=== PATIENT | male | born 1950 | race Caucasian/White ===

== ENCOUNTER 2020-02-17 00:11 | Observation (INO) | payer OTHER, SELFPAY ==
[2020-02-17] VITALS (21 sets, daily range): BP systolic 85–133; BP diastolic 57–85; PULSE 93–121; RESP 16–34; TEMP 36.6–37.2; O2SAT 89–98; BMI 19.8
--- NOTE | ~2020-02-17 | XR_ITS ---
EXAMINATION: XR chest 1V portable DATE: 02/17/2020 01:13 INDICATION: Cough and shortness of breath. TECHNIQUE: A single frontal view of the chest was obtained. COMPARISON: Chest 2 views 01/03/2017, CT abdomen and pelvis 08/26/2016 FINDINGS: There are lucencies in the lungs, consistent with emphysema. There is a moderate-sized righ t pleural effusion. There are airspace opacities in right mid and lower lung zones and left lower nikolai g zone. No pneumothorax. The heart size is normal. There are changes of anterior fusion procedure in cervical spine. There is a right internal jugular port with tip in proximal right atrium. IMPRESSION: 1. Moderate-sized right pleural effusion. 2. Airspace opacities in right mid and lower lung zones and left lower lung zone, consistent with ate lectasis versus pneumonia. 3. Emphysema. Reviewed, dictated and finalized at location A. IMPRESSION: 1. Moderate-sized right pleural effusion. 2. Airspace opacities in right mid and lower lung zones and left lower lung zon e, consistent with atelectasis versus pneumonia. 3. Emphysema.
--- NOTE | 2020-02-17 00:22 | ECG_ITS ---
Measurements Intervals [place] Rate: 113 P: 48 MS: 175 QRS: -44 QRSD: 112 T: 88 QT: 339 QTc: 465 Interpretive Statements SINUS TACHYCARDIA ATRIAL PREMATURE COMPLEXES LEFT AXIS DEVIATION LOW QRS VOLTAGE IN LIMB LEADS DELAYED PRECORDIAL R/S TRANSITION BORDERLINE ST-T WAVE ABNORMALITY- INF/LAT LEADS BASELINE WANDER- I, III, AVR, AVL, AVF, V1, V3-V6 ABNORMAL ECG Electronically Signed On 02-17-2020 7:10:00 CDT by Hans Rahman D.O.
[2020-02-17 00:35] LABS: Basophils Percent Auto 0.4 % (0.2-1.2); Eosinophils Absolute Auto 0.1 K/mm3 (0-0.3); Eosinophils Percent Auto 0.9 % (0-4.4); Hematocrit 38.5 % (42.0-52.0); Hemoglobin 12.7 g/dL (14.0-18.0); Immature Granulocyte Absolute 0.04 K/mm3 (0.00-0.031); Immature Granulocyte Percent A 0.4 % (0-0.5); Lymphocytes Absolute Auto 0.58 K/mm3 (0.9-3.2); Lymphocytes Percent Auto 6.3 % (18.3-44.2); Mean Corpuscular Hemoglobin 29.7 pg (26-34); Mean Corpuscular Volume 90.2 fl (80-100); Monocytes Absolute Auto 0.6 K/mm3 (0.1-0.6); Monocytes Percent Auto 6.7 % (2.6-8.5); Neutrophils Absolute Auto 7.9 K/mm3 (1.3-6.7); Neutrophils Percent Auto 85.3 % (45.5-73.1); Platelet Count Result 295 k/mm3 (150-375); Red Blood Count 4.27 M/mm3 (4.6-6.20); Red Cell Distribution Width 14.6 % (11.5-14.5); White Blood Count 9.2 K/mm3 (4.5-10.0)
[2020-02-17 00:44] LABS: Prothrombin Time 13.1 Seconds (11.1-14.7)
[2020-02-17 00:45] LABS: Partial Thromboplastin Time 38.2 SECONDS (22.3-36.8)
[2020-02-17 00:46] LABS: Anion Gap 6 mmol/L (8-16); Blood Urea Nitrogen 19 mg/dL (9-20); Calcium 8.4 mg/dL (8.4-10.2); Carbon Dioxide 25 mmol/L (22-30); Chloride 99 mmol/L (98-107); Estimated CRCL calculation 68 ml/min; Estimated Glomerular Filt Rate > 60; Glucose 127 mg/dL (75-110); Potassium 4.5 mmol/L (3.4-5.0); Sodium 130 mmol/L (137-145)
--- NOTE | 2020-02-17 00:50 | ED.GENADULT ---
HPI - General Adult General Chief complaint: Shortness of Breath/Dyspnea Stated complaint: SOB Time Seen by Provider: 02/17/20 00:15 Source: RN notes reviewed History of Present Illness HPI narrative: Patient presents emergency department from home for shortness of breath. Patient states symptoms progressively been worsening over the past several weeks. States he has a history of COPD. Also states that he has a history of metastatic rectal cancer. Patient states he initially had rectal cancer that was treated and under remission but then returned with metastasis to the lung into the liver patient was initially on chemotherapy but secondary to reactions to chemotherapy stopped his chemotherapy in September. States he is had no treatment since that time. He states that at that time when he stopped he states that they were unsure of his life expectancy. Patient states that he is got has a cough that is nonproductive. He denies any fevers or chills chest pain abdominal pain nausea vomiting or any other symptoms Related Data Allergies Allergy/AdvReac Type Severity Reaction Status Date / Time Penicillins Allergy Severe Anaphylactic Verified 10/11/08 13:41 Shock BEES Allergy Severe Anaphylactic Uncoded 04/14/08 20:22 Shock MUSHROOMS Allergy Severe Anaphylactic Uncoded 04/14/08 20:22 Shock Review of Systems Review of Systems: Narrative: Gen.: Denies fevers or chills Eyes: Denies eye pain or visual change ENT: Denies congestion Respiratory: Reports shortness of breath CV: Denies chest pain or palpitations GI: Denies abdominal pain nausea, emesis or diarrhea denies burning, urgency, frequency or hematuria reports rectal cancer with metastasis to the liver and chest Musculoskeletal: Denies back pain or muscle pain Neuro: Denies numbness, tingling, weakness or focal weakness Skin: Denies rash Except as documented, all other systems reviewed and negative [facility] Past Medical History Medical History (Updated 02/17/20 @ 03:06 by Landon Ott DO) COPD (chronic obstructive pulmonary disease) Rectal cancer metastasized to lung Social History Social History (Updated 02/17/20 @ 01:25 by Landon Ott DO) Smoking status: Former smoker Exam Narrative: Exam Narrative: APPEARANCE: Moderate respiratory distress, nontoxic, resting in bed EYES: EOMI HEENT: Normocephalic, atraumatic, OMM RESPIRATORY: Moderate respiratory distress sitting upright in bed, coarse breath sounds with bilateral lung spence with decreased breath sounds on right CARDIOVASCULAR: Regular rate and rhythm without murmurs rubs or gallops. ABDOMINAL: Soft, nontender, nondistended, no rebound or guarding MUSCULOSKELETAl: Moves all extremities. No clubbing, cyanosis or edema. NEURO: Awake and alert. Following commands, speech normal, no focal deficits SKIN:: Warm, dry. No rashes lesions or abrasions PSYCHIATRIC: Normal affect/mood, Course Course Emergency Course: Extensive discussion with patient and family. The patient is a modified code he states he would not want intubation but is okay with CPR. We discussed if they ever discussed hospice with the patient. He states it was initially discussed but then he had had to retire from his job and had secondary insurance issues and never followed up. Patient states that he does have an inhaler he is used at home but states he is not really followed up with any physicians since he stopped his treatments in September Cus with Dr. Wynn presentation work-up. Agrees admission at this time. Will have case management evaluate the patient as well as have a therapeutic thoracentesis Discussed with patient and family results of workup and diagnosis. Discussed need for admission. Patient and family understand and agree to current treatment plan Vital Signs Vital signs: Vital Signs Temperature 98.1 F 02/17/20 00:17 Pulse Rate 116 H 02/17/20 00:17 Respiratory Rate 33 H 02/17/20 00:17 Blood Pressure 126/
[2020-02-17 00:53] LABS: Alveolar/Arterial O2 Gradient 113.5 mmHg; Base Excess ABG -1.4 mEq/l (+/-2.0); Fractional Inspired Oxygen 28 %; HCO3 ABG 19.8 mEq/l (22.0-26.0); Oxygen Content ABG 15.4 %vol (16.0-22.0); Oxygen Saturation ABG 93.4 % (95.0-100.0); Oxyhemoglobin 91.2 % THb (90.0-100.0); PCO2 ABG 24.1 mmHg (35.0-45.0); PO2 ABG 57.7 mmHg (80.0-100.0); PO2 FiO2 Ratio Arterial Blood 2.06 %
[2020-02-17 00:54] LABS: Device NASAL CANNULA; Modified Allen's Test Pass; Site Drawn LEFT RADIAL; pH ABG 7.532 (7.350-7.450)
[2020-02-17 00:56] LABS: Lactic Acid Reflex 2.3 mmol/L (0.7-2.1)
[2020-02-17 00:59] LABS: NT Pro B Type Natriuretic Pept 1310 PG/ML (5-100); Troponin I 0.014 ng/mL (0.000-0.034)
[2020-02-17] MEDS: IPRATROPIUM BR 0.02% INH SOLN 0.5 MG/2.5 ML VIAL INHALATION ×4 (01:32→19:26)
[2020-02-17] MEDS: ALBUTEROL SULFATE NEB 2.5 MG/0.5 ML INH 5 MG INHALATION ×4 (01:32→19:26)
[2020-02-17] MEDS: SODIUM CHLORIDE 0.9% IV 1,000 ML 80 ML IV CONT ×3 (02:15→05:40)
[2020-02-17] MEDS: SODIUM CHLORIDE 0.9% IV 1,000 ML 999 ML IV CONT (02:27)
[2020-02-17 03:39] LABS: Reflex Lactic Acid Yes or No Add Lactic
[2020-02-17 04:40] LABS: Lactic Acid 1.5 mmol/L (0.7-2.1)
[2020-02-17 08:02] LABS: Basophils Percent Auto 0.4 % (0.2-1.2); Eosinophils Percent Auto 0.3 % (0-4.4); Hemoglobin 11.3 g/dL (14.0-18.0); Immature Granulocyte Absolute 0.02 K/mm3 (0.00-0.031); Immature Granulocyte Percent A 0.3 % (0-0.5); Lymphocytes Absolute Auto 0.35 K/mm3 (0.9-3.2); Lymphocytes Percent Auto 4.7 % (18.3-44.2); Mean Corpuscular HGB Conc 33.2 g/dl (32-36); Mean Corpuscular Hemoglobin 30.1 pg (26-34); Mean Corpuscular Volume 90.4 fl (80-100); Mean Platelet Volume 9.5 fl (7.4-10.4); Monocytes Absolute Auto 0.4 K/mm3 (0.1-0.6); Monocytes Percent Auto 5.3 % (2.6-8.5); Neutrophils Absolute Auto 6.6 K/mm3 (1.3-6.7); Platelet Count Result 273 k/mm3 (150-375); Red Blood Count 3.76 M/mm3 (4.6-6.20); Red Cell Distribution Width 14.7 % (11.5-14.5); White Blood Count 7.4 K/mm3 (4.5-10.0)
[2020-02-17] MEDS: FUROSEMIDE INJ 40 MG/4 ML VIAL IV PUSH ×2 (08:13→16:50)
[2020-02-17 09:13] LABS: Alanine Aminotransferase 24 U/L (4-50); Albumin Level 2.8 g/dL (3.5-5.1); Alkaline Phosphatase 468 U/L (38-126); Anion Gap 7 mmol/L (8-16); Aspartate Amino Transferase 51 U/L (17-59); Bilirubin,Total 0.6 mg/dL (0.2-1.3); Blood Urea Nitrogen 21 mg/dL (9-20); Calcium 8.3 mg/dL (8.4-10.2); Carbon Dioxide 22 mmol/L (22-30); Chloride 101 mmol/L (98-107); Estimated CRCL calculation 78 ml/min; Estimated Glomerular Filt Rate > 60; Glucose 102 mg/dL (75-110); Potassium 4.1 mmol/L (3.4-5.0); Sodium 130 mmol/L (137-145)
--- NOTE | 2020-02-17 10:59 | PM.IMHP ---
H&P: HPI History of Present Illness Date/Time: 02/17/20 10:59 Chief complaint: Right pleural effusion Narrative: Date of admission: 02/17/2020 Date of service: 02/17/2020 Hilario Shea is a 69 year old male with a history of rectal cancer with lung metastases, COPD, and CAD who presented to the emergency department on 02/17/2020 with complaints of shortness of breath. He has felt short of breath for months and this has worsened over the past 6 weeks. Last night he states I feel like I was drowning. He was gasping for air and felt like he could not breathe. This prompted him to seek emergency care. He states that he can feel fluid in his chest and he has been pounding on his chest to try to loosen up the fluid, although he has not been able to cough anything up. He has been having a dry cough. He is not able to lie flat. He denies ARIZMENDI. His chest x-ray showed moderate-sized right pleural effusion. He feels extremely weak and fatigued. He was recently seen by his oncologist and stated that he did not want to continue with any further chemotherapy. He told me that he would rather focus on the quality of his life rather than the quantity. I spoke with him and his daughter at length regarding his condition. The patient would like to be evaluated by hospice. Review of Systems Review of Systems: Narrative: A 12 point review of systems was reviewed with pertinent positives and negatives as per HPI. Patient denies visual changes, dysphagia confusion, chest pain, palpitations, nausea, vomiting, fever, chills, or abdominal pain. He complains of headache. He has chronic diarrhea. He reports he has been urinating frequently but denies urgency, dysuria, or hematuria. He denies numbness or tingling. He denies lower extremity edema. He denies bleeding or bruising. [facility] Past Medical History Medical History (Updated 02/17/20 @ 14:30 by Veronika Cagle PA-C) COPD (chronic obstructive pulmonary disease) Coronary artery disease Hyperlipidemia Rectal cancer metastasized to lung Systolic heart failure Surgical History Surgical History (Updated 02/17/20 @ 13:49 by Veronika Cagle PA-C) H/O cardiac radiofrequency ablation H/O inguinal hernia repair History of ileostomy History of reversal of ileostomy Status post LASIK surgery Family History Family History (Updated 02/17/20 @ 13:49 by Veronika Cagle PA-C) Grandparent Cerebrovascular accident Hypertension Diabetes mellitus Father Tuberculosis Chronic obstructive pulmonary disease Mother Chronic obstructive pulmonary disease Social History Social History (Updated 02/17/20 @ 14:05 by Veronika Cagle PA-C) Social History: Mr. Shea lives at home with his daughter and her and children. He recently retired from his job selling generators. He designates his daughter, Jazlyn Clement as his surrogate decision maker. He consents to chest compressions but does not wish to be intubated. His PCP is Dr. Sandoval. Smoking packs per day: 1 Smoking cigarettes per day: 20.0 Years smoked: 50 Smoking pack-years: 50.00 Smoking status: Former smoker Tobacco type: cigarettes Alcohol intake: former Drinks per week: 30 Alcohol use details: Quit drinking 30 years ago Substance use: former Substance use type: marijuana Living arrangements: with family Occupation/Education: retired Gender identity (if verbalized by the patient): Male Spiritual care concerns: No Meds Home Medications and Allergies Home Medications Medication Instructions Recorded Confirmed Type albuterol sulfate [Ventolin HFA] 2 inh INHALATION QID 02/17/20 02/17/20 History diphenoxylate-atropine 1 tablet PO QID PRN 02/17/20 02/17/20 History megestrol 40 mg PO BID 02/17/20 02/17/20 History midodrine 10 mg PO TID 02/17/20 02/17/20 History rosuvastatin 40 mg PO DAILY 02/17/20 02/17/20 History sacubitril-valsartan [Entresto] 1 tablet PO TID 08
[2020-02-17] MEDS: LOPERAMIDE HCL 2 MG CAPSULE PO ×2 (18:47→22:31)
[2020-02-17] MEDS: FAMOTIDINE 20 MG TABLET PO (21:30)
[2020-02-17] MEDS: ALBUTEROL SULFATE NEB 2.5 MG/0.5 ML INH INHALATION (23:13)
[2020-02-18] VITALS (10 sets, daily range): BP systolic 100–118; BP diastolic 65–78; PULSE 108–146; RESP 18–26; TEMP 36.2–37; O2SAT 86–95
[2020-02-18] MEDS: ALBUTEROL SULFATE NEB 2.5 MG/0.5 ML INH 5 MG INHALATION ×2 (02:21→09:30)
[2020-02-18] MEDS: IPRATROPIUM BR 0.02% INH SOLN 0.5 MG/2.5 ML VIAL INHALATION ×2 (02:21→09:30)
[2020-02-18 06:29] LABS: Basophils Percent Auto 0.2 % (0.2-1.2); Eosinophils Percent Auto 0.4 % (0-4.4); Hematocrit 35.6 % (42.0-52.0); Hemoglobin 11.6 g/dL (14.0-18.0); Immature Granulocyte Absolute 0.06 K/mm3 (0.00-0.031); Immature Granulocyte Percent A 0.7 % (0-0.5); Lymphocytes Absolute Auto 0.27 K/mm3 (0.9-3.2); Lymphocytes Percent Auto 3.2 % (18.3-44.2); Mean Corpuscular HGB Conc 32.6 g/dl (32-36); Mean Corpuscular Hemoglobin 29.7 pg (26-34); Mean Corpuscular Volume 91.3 fl (80-100); Monocytes Absolute Auto 0.4 K/mm3 (0.1-0.6); Monocytes Percent Auto 5.2 % (2.6-8.5); Neutrophils Absolute Auto 7.5 K/mm3 (1.3-6.7); Neutrophils Percent Auto 90.3 % (45.5-73.1); Platelet Count Result 262 k/mm3 (150-375); White Blood Count 8.3 K/mm3 (4.5-10.0)
[2020-02-18 06:55] LABS: Anion Gap 7 mmol/L (8-16); Blood Urea Nitrogen 19 mg/dL (9-20); Calcium 8.3 mg/dL (8.4-10.2); Carbon Dioxide 26 mmol/L (22-30); Chloride 101 mmol/L (98-107); Estimated CRCL calculation 78 ml/min; Estimated Glomerular Filt Rate > 60; Glucose 108 mg/dL (75-110); Potassium 3.6 mmol/L (3.4-5.0); Sodium 134 mmol/L (137-145)
[2020-02-18] MEDS: FUROSEMIDE INJ 40 MG/4 ML VIAL IV PUSH (08:37)
[2020-02-18] MEDS: ENOXAPARIN 40 MG/0.4 ML SYRINGE SUB-Q (08:37)
[2020-02-18] MEDS: FAMOTIDINE 20 MG TABLET PO (08:38)
[2020-02-18] MEDS: ONDANSETRON INJ 4 MG/2 ML VIAL IV PUSH (09:28)
[2020-02-18] MEDS: guaiFENesin 12 HR 600 MG TABCR PO (09:56)
[2020-02-18] MEDS: SALINE 0.65% NAS SOLN 44 ML BTL 1 SPRAY NASAL (12:52)
--- NOTE | 2020-02-18 13:56 | PM.DS ---
DS: Admitting Diagnosis Admitting Diagnosis Admitting Diagnosis: Right pleural effusion DS: Discharge Diagnosis Discharge Diagnosis (1) Encounter for hospice care discussion: Code(s): Z71.89 - Other specified counseling Status: Acute Assessment and Plan: patient recently stopped receiving chemotherapy. He told me that he was more focused on the quality of his life rather than the quantity. Because of this, both he and his daughter expressed interest in meeting with [facility]. Consultation was arranged on 02/17/2020. Hospice care was arranged and patient was discharged from the facility and will be evaluated by hospice in his home. (2) Acute respiratory failure with hypoxia: Code(s): J96.01 - Acute respiratory failure with hypoxia Status: Acute Assessment and Plan: He was hypoxic at presentation and required supplemental O2. Likely multifactorial given pleural effusion, lung metastases, COPD, and CHF. he was requiring 4-5 L to maintain adequate oxygen saturations. He will continue oxygen at home per hospice. (3) Pleural effusion on right: Code(s): J90 - Pleural effusion, not elsewhere classified Status: Acute Assessment and Plan: CXR showed moderate sized right sided pleural effusion. Likely malignant pleural effusion. He was short of breath and tachypneic. He was diuresed with IV Lasix. He declined therapeutic thoracentesis. He will continue p.o. Lasix at home. (4) Rectal cancer metastasized to lung: Code(s): C20 - Malignant neoplasm of rectum; C78.00 - Secondary malignant neoplasm of unspecified lung Status: Acute Assessment and Plan: Patient was undergoing chemotherapy for lung metastases but recently decided to stop treatment. Further care per [facility] (5) CHF (congestive heart failure): Qualifiers: Heart failure type: systolic Heart failure chronicity: acute on chronic Qualified Code(s): I50.23 - Acute on chronic systolic (congestive) heart failure Code(s): I50.9 - Heart failure, unspecified Status: Acute Assessment and Plan: Patient reports EF is approximately 20%. BNP was elevated at 1310. He was diuresed with IV Lasix and can continue p.o. Lasix at home. (6) COPD (chronic obstructive pulmonary disease): Qualifiers: COPD type: unspecified COPD Qualified Code(s): J44.9 - Chronic obstructive pulmonary disease, unspecified Code(s): J44.9 - Chronic obstructive pulmonary disease, unspecified Status: Acute Assessment and Plan: Patient was requiring supplemental oxygen at 4-5 L and will continue to use supplemental O2 at home. Continue albuterol and Anoro Ellipta. (7) Normocytic anemia: Code(s): D64.9 - Anemia, unspecified Status: Acute Assessment and Plan: Chronic and stable. Most likely anemia of chronic disease. H&H remained stable. DS: Summary Hospital Course Reason for hospitalization: Shortness of breath Hospital Course: date of admission: 02/17/2020 date of discharge: 02/18/2020 Hilario Shea is a 69 year old male with a history of rectal cancer with lung metastases, COPD, and CAD who presented to the emergency department on 02/17/2020 with complaints of shortness of breath. He had felt short of breath for months and this worsened over the past 6 weeks. the evening prior to admission he stated I felt like I was drowning. He was gasping for air and felt like he could not breathe. This prompted him to seek emergency care. I presentation, he was tachycardic and hypoxic at 89%, troponin 0.014, BNP 1310, lactic 2.3, and CXR showing moderate-sized right pleural effusion. He was admitted to the hospitalist service for further evaluation. Please see above for details. He was diuresed and given breathing treatments. Patient and family met with hospice and chose to proceed with hospice care. He remained short of b
== END 2020-02-18 14:55 | disposition hospice, home (50) ==
LOC: ANHED 00:26 → ANH3MED 02:16
PROVIDERS: Physician Assistant; Admitting Provider Internal Medicine; Emergency Provider Emergency Medicine; PCP Internal Medicine; Visit Provider Internal Medicine
DX: J96.01 Acute respiratory failure with hypoxia (principal); Z51.5 Encounter for palliative care; C20 Malignant neoplasm of rectum; C78.00 Secondary malignant neoplasm of unspecified lung; J90 Pleural effusion, not elsewhere classified; C78.7 Secondary malignant neoplasm of liver and intrahepatic bile duct; I50.23 Acute on chronic systolic (congestive) heart failure; J44.9 Chronic obstructive pulmonary disease, unspecified; D64.9 Anemia, unspecified; I25.10 Atherosclerotic heart disease of native coronary artery without angina pectoris; E78.5 Hyperlipidemia, unspecified; Z79.899 Other long term (current) drug therapy; Z87.891 Personal history of nicotine dependence; Z92.21 Personal history of antineoplastic chemotherapy
CPT/HCPCS: 36415; 36600; 71045; 80048; 80053; 82805; 83605; 83880; 84484; 85025; 85610; 85730; 87040; 93005; 94640; 96361; 96365; 96372; 96374; 96375; 96376; 99285; A9270; G0378; J0131; J1650; J1940; J2060; J2405; J7030